=== PATIENT | female | born 1990 | race Asian ===

== ENCOUNTER 2021-10-10 22:49 | Emergency (ER) | payer OTHER ==
[~2021-10-10] VITALS: Ht 170.2 cm; Wt 65.8 kg
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
--- NOTE | 2021-10-10 23:36 | NUR ---
XRAY AT BEDSIDE
--- NOTE | 2021-10-11 00:15 | NUR ---
PT TAKEN TO CT VIA [facility]
[2021-10-11 01:16] VITALS: BP 123/59
--- NOTE | 2021-10-11 01:16 | NUR ---
Patient discharged to [employer] custody in stable condition. Written and verbal after care instructions given. Patient verbalizes understanding of instruction. Pt ambulatory with a steady gait
== END 2021-10-11 01:17 ==
LOC: ER 22:53
DX: S20.219A Contusion of unspecified front wall of thorax, initial encounter (principal); F10.129 Alcohol abuse with intoxication, unspecified; R51.9 Headache, unspecified; V49.49XA Driver injured in collision with other motor vehicles in traffic accident, initial encounter; Y93.89 Activity, other specified; Y92.413 State road as the place of occurrence of the external cause; Y99.8 Other external cause status; Y90.9 Presence of alcohol in blood, level not specified
CPT/HCPCS: 70450-TC; 71045-TC